=== PATIENT | male | born 1990 | race American Indian/Alaskan Native ===

== ENCOUNTER 2019-02-20 18:16 | Emergency (ER) | payer MEDICAID ==
[2019-02-20 18:48] VITALS: BMI 34.7
[2019-02-20 18:53] VITALS: RESP 18; TEMP 98
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
[2019-02-20 20:54] VITALS: BP 120/67; PULSE 69; O2SAT 100
--- NOTE | 2019-02-21 11:39 | CARD ---
APPROVED REPORT Date of service: 02/20/2019 EKG Measurement Heart [id number] <Conclusion> Normal sinus rhythm Normal Electrocardiogram
--- NOTE | 2019-02-21 12:48 | RAD ---
Date of service: 02/20/2019 PROCEDURE: CHEST RADIOGRAPH, 1 VIEW HISTORY: cp, rash COMPARISON: None available. FINDINGS: LUNGS: Clear. PLEURA: No pneumothorax or pleural fluid seen. CARDIOVASCULAR: No aortic atherosclerotic calcification present. Normal. OSSEOUS STRUCTURES: No significant abnormalities. VISUALIZED UPPER ABDOMEN: Normal. OTHER FINDINGS: None. IMPRESSION: No active disease.
== END 2019-02-20 21:03 | disposition home or self-care (01) ==
LOC: ED 18:16
DX: R21 Rash and other nonspecific skin eruption (principal)

== ENCOUNTER 2019-03-21 17:32 | Emergency (ER) | payer MEDICAID ==
[2019-03-21 17:41] VITALS: BMI 34.0
[2019-03-21] MEDS ORDERED: Sodium Chloride 0.9% 1,000 ML IV STA (17:44)
[2019-03-21] MEDS ORDERED: Alum-Mag Hydrox-Simethicone Susp (30 mL) PO STA (17:45)
[2019-03-21] MEDS ORDERED: Atrop/Hyosc/Scopal/PB Elixir (120 ml) PO STA (17:45)
[2019-03-21 18:00] VITALS: RESP 18; O2SAT 100
[2019-03-21 18:26] LABS: BASO # 0.03 K/mm3 (0.0-2.0); BASO % 0.5 % (0.0-3.0); EOS # 0.2 (0.0-0.7); EOS % 3.4 % (1.5-5.0); HEMOGLOBIN 14.9 g/dL (14.0-18.0); LYMPH # 1.9 (1.2-3.4); MEAN CELL VOLUME 83.7 fl (80.0-105.0); MEAN CORPUSCULAR HEMOGLOBIN 28.7 pg (25.0-35.0); MEAN CORPUSCULAR HGB CONC 34.3 g/dl (31.0-37.0); MEAN PLATELET VOLUME 12.7 fl (7.0-11.0); MONO # 0.6 (0.1-0.6); MONO % 8.7 % (1.0-6.0); RBC 5.2 10^6/uL (3.5-6.1); RED CELL DISTRIBUTION WIDTH 14.1 % (11.5-14.5); WHITE BLOOD COUNT 6.4 10^3/uL (4.5-11.0)
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
[2019-03-21 18:34] LABS: INR 1.08; PARTIAL THROMBOPLASTIN TIME 31.2 Seconds (26.9-38.3)
[2019-03-21 18:35] LABS: ALB/GLOB RATIO 1.5 (1.1-1.8); ALBUMIN 4.2 g/dL (3.0-4.8); ALT/SGPT 35 U/L (7-56); AST/SGOT 33 U/L (17-59); BLOOD UREA NITROGEN 15 mg/dL (7-21); GFR NON-AFRICAN AMERICAN > 60
[2019-03-21 18:52] LABS: CK-MB 2.2 ng/mL (0.0-3.6)
--- NOTE | 2019-03-21 18:52 | RAD ---
HISTORY: SOB COMPARISON: Chest x-ray performed 02/20/19 TECHNIQUE: Chest, one view. FINDINGS: Examination limited by habitus. LUNGS: No focal consolidation. Please note that chest x-ray has limited sensitivity for the detection of pulmonary masses. PLEURA: No significant pleural effusion identified. No definite pneumothorax . CARDIOVASCULAR: Heart size appears within normal limits. Atherosclerotic calcifications of the aorta. No significant atherosclerotic calcifications identified. OSSEOUS STRUCTURES: No acute osseous abnormality identified. VISUALIZED UPPER ABDOMEN: Unremarkable. OTHER FINDINGS: None. IMPRESSION: No acute findings identified.
[2019-03-21 18:53] LABS: TROPONIN I < 0.01 ng/mL
[2019-03-21] MEDS ORDERED: Sodium Chloride 0.9% 500 ML IV STA (19:42)
[2019-03-21 20:35] VITALS: BP 120/78; PULSE 63; TEMP 98.3
[2019-03-21 20:50] LABS: URINE BILIRUBIN NEGATIVE (NEGATIVE); URINE BLOOD NEGATIVE (NEGATIVE); URINE GLUCOSE (UA) NEGATIVE (NEGATIVE); URINE LEUKOCYTE ESTERASE NEGATIVE Leu/uL (NEGATIVE); URINE PROTEIN NEGATIVE mg/dL (<30 mg/dL); URINE UROBILINOGEN 0.2 E.U./dL (<1 E.U./dL)
[2019-03-21 20:51] LABS: URINE APPEARANCE CLEAR (CLEAR); URINE COLOR YELLOW (YELLOW)
[2019-03-21 21:09] LABS: BARBITURATES, UR NEGATIVE (NEGATIVE)
[2019-03-21 21:12] LABS: BENZODIAZEPINES, UR NEGATIVE (NEGATIVE); OPIATES, UR NEGATIVE (NEGATIVE); PHENCYCLIDINE, UR POSITIVE (NEGATIVE)
--- NOTE | 2019-03-21 21:40 | CARD ---
APPROVED REPORT Date of service: 03/21/2019 EKG Measurement Heart [id number] <Conclusion> Normal sinus rhythm Possible Lateral infarct, age undetermined Diffuse mild ST elevation- probable early repolarization, a normal variant Abnormal ECG
== END 2019-03-21 22:15 | disposition home or self-care (01) ==
LOC: ED 17:32
DX: K21.9 Gastro-esophageal reflux disease without esophagitis (principal); R07.9 Chest pain, unspecified; F17.210 Nicotine dependence, cigarettes, uncomplicated
CPT/HCPCS: 71045; 80053; 80320; 80324; 80345; 80346; 80349; 80353; 80358; 80361; 81003; 82550; 82553; 83615; 83690; 83735; 83992; 84484; 85025; 85610; 85730; 93005; 96374; 99283; J7030; J7040